=== PATIENT | female | born 1980 | race Caucasian/White ===

== ENCOUNTER 2016-06-11 21:46 | Emergency (ER) | payer OTHER ==
--- NOTE | 2016-06-11 23:12 | ED ---
General Adult HPI - General Chief complaint: Extremity Injury, Lower Stated complaint: lt ankle injury Time Seen by Provider: 06/11/16 22:37 Source: patient, family, RN notes reviewed Mode of arrival: ambulatory Limitations: no limitations - History of Present Illness Initial comments: Patient 36-year-old female who presents emergency room today with a chief complaint of an injury to the left ankle that occurred approximately 4 hours ago. States she was in the backyard and stepped into a hole rolled the left ankle. Does admit to pain over the lateral aspect. Denies any other injuries or complaints. Patient denies any recent fever, chills, shortness of breath, chest pain, back pain, abdominal pain, nausea or vomiting, numbness or tingling , dysuria or hematuria, constipation or diarrhea, headaches or visual changes, or any other complaints. - Related Data Previous Rx's Medication Instructions Recorded Ibuprofen [Motrin] 600 mg PO Q6HR PRN #40 day 06/11/16 Allergies Allergy/AdvReac Type Severity Reaction Status Date / Time No Known Allergies Allergy Verified 06/11/16 21:54 Review of Systems ROS Statement: Those systems with pertinent positive or pertinent negative responses have been documented in the HPI. ROS Other: All systems not noted in ROS Statement are negative. Past Medical History Past Medical History: No Reported History History of Any Multi-Drug Resistant Organisms: None Reported Past Surgical History: Section, Cholecystectomy, Orthopedic Surgery Past Psychological History: No Psychological Hx Reported Smoking Status: Never smoker Past Alcohol Use History: Occasional Past Drug Use History: None Reported General Exam - General Exam Comments Initial Comments: General: The patient is awake and alert, in no distress, and does not appear acutely ill. Neck: The neck is supple, there is no tenderness or JVD. Cardiovascular: There is a regular rate and rhythm. No murmur, rub or gallop is appreciated. Respiratory: Lungs are clear to auscultation, respirations are non-labored, breath sounds are equal. No wheezes, stridor, rales, or rhonchi. Musculoskeletal: Patient does have moderate swelling to the left ankle. Mild tenderness over the lateral malleolus. Mild tenderness at the distal fourth metatarsal. The bony tenderness on exam. No tenderness to the left knee. Cap refill less than 2 seconds. Sensations are intact with pulses equal bilaterally 2+. Neurological: A&O x 3. CN II-XII intact, There are no obvious motor or sensory deficits. Coordination appears grossly intact. Speech is normal. Skin: Skin is warm and dry and no rashes or lesions are noted. Psychiatric: Normal mood and affect. Limitations: no limitations Course Vital Signs 06/11/16 21:52 Temperature 97.2 F L Pulse Rate 93 Respiratory 18 Rate Blood Pressure 145/72 O2 Sat by Pulse 98 Oximetry Medical Decision Making - Medical Decision Making X-rays negative for any acute fracture dislocation. Results were discussed with patient. Advised follow-up in 7-10 days for repeat x-rays if symptoms persist. Advised continued ice elevate the affected area and use ankle brace when up and moving around. Disposition Clinical Impression: Ankle sprain Disposition: HOME SELF-CARE Condition: Good Instructions: Ankle Sprain (ED) Additional Instructions: Please continue to ice elevate the affected area at least 4 times a day for 20 minutes at a time. Please use brace when up and moving around. Please use ibuprofen for pain as needed. Please follow-up family doctor or orthopedics in 7-10 days for repeat x-rays if symptoms persist. Please return to emergency room if any symptoms increase or worsen appropriate concerns. Prescriptions: Ibuprofen [Motrin] 600 mg PO Q6HR PRN #40 day PRN Reason: Pain Time of Disposition: 23:37
--- NOTE | 2016-06-11 23:23 | XR ---
EXAM: LEFT ANKLE, 3 views INDICATION: 36-year-old female with pain. COMPARISON: None. FINDINGS: 3 views of the left ankle are obtained. Bony structures are intact. Bone mineralization is within normal limits. Well-corticated ossific density projects distal to the fibular tip likely representing sequela of prior injury or an accessory ossicle. Joint spaces are preserved. Ankle mortise and syndesmosis are intact. There is marked soft tissue swelling of the lateral ankle. No radio- opaque foreign bodies. IMPRESSION: 1. No acute osseous abnormality. 2. Soft tissue swelling of the lateral ankle.
--- NOTE | 2016-06-11 23:27 | XR ---
EXAM: LEFT FOOT, 3 views INDICATION: 36-year-old female with ankle pain after injury. COMPARISON: None. FINDINGS: 3 views of the left foot are obtained. Bony structures are intact. Bone mineralization is within normal limits. Joint spaces are preserved. Marked soft tissue swelling of the lateral ankle. No radio-opaque foreign bodies. IMPRESSION: No acute fracture or subluxation identified.
[2016-06-11 23:41] VITALS: BP 115/58; PULSE 84; RESP 17; TEMP 97.7
== END 2016-06-11 23:44 | disposition home or self-care (01) ==
LOC: EC 21:46
DX: S93.402A Sprain of unspecified ligament of left ankle, initial encounter (principal); W17.2XXA Fall into hole, initial encounter
CPT/HCPCS: 99283

== ENCOUNTER → 2017-10-30 | Outpatient (CLI) | payer OTHER ==
--- NOTE | 2017-10-30 22:30 | MR ---
EXAMINATION TYPE: MR angio head wo con DATE OF EXAM: 10/30/2017 COMPARISON: Brain MR same date HISTORY: Headache TECHNIQUE: Time of flight images focusing on the [place] were performed without contrast. FINDINGS: Vertebrobasilar system, internal carotid arteries are patent. There is no filling defect, v ascular malformation, or evident aneurysm in the [place]. Vertebral arteries are codominant. IMPRESSION: Normal [place]. No evident aneurysm.
--- NOTE | 2017-10-31 07:13 | MR ---
EXAMINATION TYPE: MR brain wo/w con DATE OF EXAM: 10/30/2017 COMPARISON: [place] [facility] [place] MRA same day HISTORY: Headache TECHNIQUE: Multiplanar, multisequence images of the brain and brainstem is performed without and with IV contras t, utilizing 10 mL intravenous Gadavist . FINDINGS: Diffusion weighted images demonstrate no evidence of a recent infarct or other diffusion ab normality. There is no extra-axial fluid collection or significant white matter signal abnormality. The ventricular system and cisternal spaces are normal in size and appearance. The brain volume is age appropriate. Brain signal is normal. Midline structures demonstrate normal morphology. The craniocervical junction appears within normal limits. Post contrast images demonstrate no abnormal enhancement. The dural venous sinuses appear pa tent. The visualized sinuses are clear and the globes are intact. IMPRESSION: Normal brain MRI
== END | disposition home or self-care (01) ==
LOC: RADMRIMAIN 21:42
PROVIDERS: ATTEND Family Medicine
DX: R51 Headache (principal)
CPT/HCPCS: 70544; 70553; A9581

== ENCOUNTER 2023-06-09 10:56 | Day surgery (SDC) | payer OTHER ==
[2023-06-08 09:19] VITALS: BMI 39.4
[2023-06-09] MEDS: LACTATED RINGERS 1,000 ML IV SCH (11:53)
[2023-06-09 12:15] VITALS: TEMP 98.6
[2023-06-09] MEDS ORDERED: PROPOFOL 10 MG/ML 20 ML VIAL IV ONE (12:18)
--- NOTE | 2023-06-09 12:35 | P.PCN ---
Date of Procedure: 06/09/23 Procedure(s) Performed: BRIEF HISTORY: Patient is a 43-year-old pleasant White female scheduled for an elective colonoscopy as a part of Evaluation of lower abdominal pain and change in bowel habits for the last several years duration. Symptoms lately have been progressively getting worse. PROCEDURE PERFORMED: Colonoscopy. PREOPERATIVE DIAGNOSIS: Lower abdominal pain and change in bowel habits. IV sedation per Anesthesia. PROCEDURE: After informed consent was obtained, the patient, was brought into the endoscopy unit. IV sedation was administered by Anesthesia under continuous monitoring. Digital rectal examination was normal. Initially the Olympus CF-160 flexible video colonoscope was then inserted in the rectum, gradually advanced into the cecum without any difficulty. Careful examination was performed as the scope was gradually being withdrawn. Ileocecal valve and the appendiceal orifice were visualized and appeared normal. Prep was excellent. Mucosa of the cecum, ascending colon, transverse colon, descending colon, sigmoid colon, and rectum appeared normal. Retroflexion was performed in the rectum and no lesions were seen. The patient tolerated the procedure well. IMPRESSION: Normal-appearing colon from rectum to cecum With no evidence of colorectal neoplasia . RECOMMENDATIONS: Findings of this examination were discussed with the patient As well as a family. She was advised to continue with a high-fiber diet and take fiber supplements a regular basis.Recommend repeat screening colonoscopy in 10 years..
[2023-06-09 13:29] VITALS: BP 146/96; PULSE 53; RESP 15
== END 2023-06-09 13:10 | disposition home or self-care (01) ==
LOC: ORWHC2ENDO 10:56
PROVIDERS: ATTEND Internal Medicine Gastroenterology
DX: R19.4 Change in bowel habit (principal); G43.909 Migraine, unspecified, not intractable, without status migrainosus; K21.9 Gastro-esophageal reflux disease without esophagitis
CPT/HCPCS: 81025; 45378; J2704